=== PATIENT | female | born 1960 | race Caucasian/White ===

== ENCOUNTER 2016-10-04 07:23 | Day surgery (SDC) | payer OTHER ==
[2016-10-01 20:40] LABS: BASOPHILS 0.7 %; BASOPHILS ABSOLUTE 0.04 10/3/uL (0.0-0.16); EOSINOPHILS 3.4 %; EOSINOPHILS ABSOLUTE 0.19 10/3/uL (0.0-0.53); HEMATOCRIT 43.7 % (36.0-48.0); HEMOGLOBIN 14.6 g/dL (12.0-16.0); IMMATURE GRANULOCYTES 0.4 %; IMMATURE GRANULOCYTES ABSOLUTE 0.02 10/3/uL (0.0-0.11); LYMPHOCYTES 38.6 %; LYMPHOCYTES ABSOLUTE 2.14 10/3/uL (0.67-4.30); MEAN CORPUS HGB CONC 33.4 g/dL (32.0-36.0); MEAN CORPUSCULAR HEMOGLOB 29.8 pg (26.0-34.0); MEAN CORPUSCULAR VOLUME 89.2 fL (80-100); MEAN PLATELET VOLUME 11.6 fL (9.2-13.0); MONOCYTES 9.4 %; MONOCYTES ABSOLUTE 0.52 10/3/uL (0.21-1.20); NEUTROPHILS 47.5 %; NEUTROPHILS ABSOLUTE 2.64 10/3/uL (2.02-8.40); RBC DISTRIBUTION WIDTH 12.9 % (12.0-16.0); WHITE BLOOD CELLS 5.6 10/3/uL (4.5-10.5)
[2016-10-01 20:41] LABS: MANUAL DIFF NO %; PLATELET COUNT 268 10/3/uL (150-400)
[2016-10-01 21:00] LABS: A/G RATIO 1.3 (0.7-1.9); ALBUMIN 4.3 G/DL (3.5-5.0); BUN (BLOOD UREA NITROGEN) 11 MG/DL (6-23); CALCIUM, SERUM 9.7 MG/DL (8.5-10.4); CHLORIDE, SERUM 107 MMOL/L (96-112); CO2 (CARBON DIOXIDE) 24 MMOL/L (24-34); CREATININE 0.73 MG/DL (0.55-1.02); GFR AFRICAN AMERICAN 107 ML/MIN (>=60); GFR NON AFRICAN AMERICAN 93 ML/MIN (>=60); GLOBULIN 3.2 G/DL (2.5-4.1); GLUCOSE, SERUM 98 MG/DL (60-99); SGPT(ALT) 39 U/L (5-65); SODIUM, SERUM 142 MMOL/L (135-148); TOTAL PROTEIN 7.5 G/DL (6.0-8.5)
[2016-10-01 21:01] LABS: ALKALINE PHOSPHATASE 96 U/L (45-117); POTASSIUM, SERUM 4.3 MMOL/L (3.5-5.3); TOTAL BILIRUBIN 0.5 MG/DL (0-1.2)
[2016-10-01 21:02] LABS: SGOT(AST) 27 U/L (5-40)
--- NOTE | ~2016-10-04 | PREOPHP ---
PreOp History and Physical [id number] [place]. [address] NAME: YIN DANIEL : 62 STATUS : PRE [facility] PAT#: [id number] AGE: 56 ADM/REG DATE : MR#: [id number] REPORT SERV DATE: 10/03/16 DICTATED BY: WENDY WEISS III DATE: 09/25/16 REPORT STATUS : Draft TRANSCRIBED BY: MODDelma DATE: 09/25/16 HISTORY OF PRESENT ILLNESS: This 56-year-old female comes to the operating room for subclavian Port-A-Cath placement to allow for chronic IV access for chemotherapy. The patient has recently been diagnosed with stage III malignant melanoma. She comes now for Port-A-Cath placement to allow for chronic IV access for chemotherapy. PAST MEDICAL HISTORY: Malignant melanoma. MEDICATIONS: Diclofenac, progesterone, Treximet, and triamcinolone. ALLERGIES: NONE. FAMILY HISTORY: Positive for heart disease and lung disease. PHYSICAL EXAMINATION: GENERAL: This is a female, in no acute distress. She is alert and oriented x3. HEENT: Unremarkable. Cranial nerves II through XII are normal. LUNGS: Clear. CARDIAC: Normal. ABDOMEN: Soft and nontender. ASSESSMENT: A 56-year-old female with stage III malignant melanoma, status post wide excision of melanoma from back, with bilateral axillary metastasis, with need for Port-A- Cath placement. PLAN: The patient comes to the operating room now for subclavian Port-A-Cath placement. This procedure, the risks, benefits, and alternatives, including not limited to the risk for bleeding, infection, pneumothorax, air embolus, pericardial tamponade, failure of the port to function, infection of the port, or subclavian vein thrombosis requiring removal of the port, dislodgement of the Port-A-Cath tubing requiring extraction, and unforeseen complications including deep venous thrombosis, pulmonary embolus, myocardial infarction, stroke, pneumonia, and , have been explained to the patient prior to surgery. Her questions were answered. She understands the risks and agrees to surgery as planned. RAYMOND/TABITHA Wendy Weiss III, M.D. / [id number]
--- NOTE | ~2016-10-04 | OP ---
Record Of Operation [facility] [address] [place]. [address] NAME: YIN DANIEL : 62 STATUS : [facility]#: [id number] AGE: 56 ADM/REG DATE : 10/04/16 MR#: [id number] REPORT SERV DATE: 10/04/16 DICTATED BY: WENDY MOJICA III DATE: 10/04/16 REPORT STATUS : Draft TRANSCRIBED BY: MODDelma DATE: 10/04/16 DATE OF PROCEDURE: 10/04/2016 PREOPERATIVE DIAGNOSIS: Malignant melanoma with need for subclavian vein Port-A-Cath placement to allow for chronic IV access for chemotherapy. POSTOPERATIVE DIAGNOSIS: Malignant melanoma with need for subclavian vein Port-A-Cath placement to allow for chronic IV access for chemotherapy. PROCEDURE: Right subclavian vein Port-A-Cath placement with fluoroscopy. SURGEON: Wendy Mojica M.D. ANESTHESIA: General with intubation. COMPLICATIONS: None. ESTIMATED BLOOD LOSS: Less than 5 mL. SPECIMENS: None. DRAINS: None. LAP AND SPONGE COUNT: Correct x3. BRIEF HISTORY: This 56-year-old female was recently diagnosed with malignant melanoma. She is in need of Port-A-Cath placement to allow for chronic IV access for chemotherapy. This procedure, the risks, benefits, and alternatives, including but not limited to the risk for bleeding, infection, pneumothorax, air embolus, pericardial tamponade, failure of the port to function, infection of the port, or subclavian vein thrombosis, requiring removal of the port, dislodgement of the Port-A-Cath tubing requiring extraction, and unforeseen complications including deep venous thrombosis, pulmonary embolus, myocardial infarction, stroke, pneumonia, and , were explained to the patient prior to surgery. Her questions were answered. She understood the risks and agreed to surgery as planned. DESCRIPTION OF PROCEDURE: After being appropriately identified, and after discussing risks of surgery with the patient again in the preoperative area, the patient was taken to the operating room and placed in the supine position on the operating room table. General anesthesia was administered, and the patient was intubated without difficulty. The upper chest and neck areas were prepped and draped sterilely in the usual fashion. After an appropriate "time-out" per JCAHO standards, a needle was used to identify the right subclavian vein. The vein was identified on the first pass of the needle. A guidewire was passed through the needle and the needle was removed. Fluoroscopy was performed, confirming the tip of the guidewire to be in the correct position of superior vena cava. A small transverse incision was then made at the exit site of the guidewire from the skin. A subcutaneous infraclavicular pocket was made of the appropriate size for the Port-A-Cath Record Of [address] [address] NAME: YIN DANIEL : 62 STATUS : [facility] PAT#: [id number] AGE: 56 ADM/REG DATE : 10/04/16 MR#: [id number] REPORT SERV DATE: 10/04/16 DICTATED BY: WENDY MOJICA III DATE: 10/04/16 REPORT STATUS : Draft TRANSCRIBED BY: TABITHA DATE: 10/04/16 housing. The Port-A-Cath housing was connected to the tubing. The Port-A-Cath housing and tubing were flushed with a heparin solution, and the tubing was cut to the appropriate length. The introducer was then placed over the guidewire. The guidewire and inner dilator were removed. The Port-A-Cath tubing was then placed through the sheath as the sheath was peeled away. This went very smoothly. The Port-A-Cath housing was positioned in the infraclavicular pocket. It was secured in place with 2-0 silk sutures. It was accessed with a Luna needle and noted to aspirate blood easily. It was then flushed with heparin solution noted to flush easily. Repeat fluoroscopy was performed, confirming the tip of the Port-A-Cath tubing to be in the correct position in superior vena cava. Hemostasis was assured. The subcutaneous tissue was closed with a running 3-0 Vicryl suture. The skin was closed with running subcuticular 4-0 Monocryl stitch. The incision was injected with 0.5% Marcaine. Dressings were applied. Anesthesia was reversed, and the patient was taken to recovery room in stable condition. The patient tolerated the procedure well. The patient will be discharged later when stable and comfortable after the chest x-ray has been cleared per Radiology. The patient's family was advised that the wound should be kept clean and dry for 48 hours, that there should be no driving for 2-3 days after surgery or while using narcotics, and the patient shall resume usual medications. The patient was asked to return in two weeks for followup or sooner for any fever, chills, wound drainage, or other problems prior to that time. RHJ/TABITHA Wendy Mojica III, M.D. / [id number] CC: Cherelle Cantu III, M.D.
--- NOTE | ~2016-10-04 | OP ---
Record Of Operation [facility] [address] [place] [address] NAME: YIN REGALADO : 62 STATUS : [facility]#: [id number] AGE: 56 ADM/REG DATE : 10/04/16 MR#: [id number] REPORT SERV DATE: 10/04/16 DICTATED BY: WENDY MOJICA III DATE: 10/04/16 REPORT STATUS : Draft TRANSCRIBED BY: MODDelma DATE: 10/04/16 DATE OF PROCEDURE: 10/04/2016 ADDENDUM: In the recovery room, Ms. Regalado had a routine chest x-ray which shows a very small right apical pneumothorax. I have reviewed this with Radiology and this appears to be too small to allow for percutaneous chest tube placement. We will plan to repeat the chest x-ray before the patient leaves today from phase 2 recovery. As long as this remains stable, no further intervention will be needed. However, if it starts increasing in size, then the patient will have a percutaneous Pleur-evac or chest tube placed. I have discussed this with the patient's . If the chest x-ray again remain stable, I have explained that there is still a small possibility of delayed pneumothorax which could be manifested by acute shortness of breath or chest pain. Should this occur, the patient's was advised that she should come immediately to the emergency room. Otherwise, we will see her back for followup as previously described. RAYMOND/TABITHA Wendy Mojica III, M.D. / [id number] CC: Cherelle Cantu III, M.D.
[~2016-10-04 07:23] MED LIST: D 5000 PO; ESTRA; NEXIUM20 M1 PO; PERCOCET 10/3251 TAB PO; PROGESTERONE PO; TREXIMET PO; VITAMIN B-121000 MC1 SL; VOLT50 PO; [UNRECOGNIZED DRUG - OTHER]
== END 2016-10-04 13:41 | disposition home or self-care (01) ==
LOC: SDC 07:23
PROVIDERS: Surgery
PROC: 05H533Z Insertion of Infusion Device into Right Subclavian Vein, Percutaneous Approach (ICD-10-PCS; 2016-10-04)
PROC: B516YZA Fluoroscopy of Right Subclavian Vein using Other Contrast, Guidance (ICD-10-PCS; 2016-10-04)
PROC: 0JH60XZ Insertion of Tunneled Vascular Access Device into Chest Subcutaneous Tissue and Fascia, Open Approach (ICD-10-PCS; principal; 2016-10-04 09:00)
DX: C43.59 Malignant melanoma of other part of trunk (principal); F41.9 Anxiety disorder, unspecified; M19.90 Unspecified osteoarthritis, unspecified site; Z85.828 Personal history of other malignant neoplasm of skin; Z82.49 Family history of ischemic heart disease and other diseases of the circulatory system; Z90.89 Acquired absence of other organs
CPT/HCPCS: 36415; 71010; 77001; 80053; 85025; 93005; C1751; J0690; J2250; J2270; J2405; J3010; Q9967

== ENCOUNTER 2016-10-20 13:35 | Observation (INO) | payer OTHER ==
[2016-10-19 12:07] LABS: BASOPHILS 0.8 %; BASOPHILS ABSOLUTE 0.06 10/3/uL (0.0-0.16); EOSINOPHILS 4.4 %; EOSINOPHILS ABSOLUTE 0.34 10/3/uL (0.0-0.53); HEMATOCRIT 42.7 % (36.0-48.0); HEMOGLOBIN 14.5 g/dL (12.0-16.0); IMMATURE GRANULOCYTES 0.3 %; IMMATURE GRANULOCYTES ABSOLUTE 0.02 10/3/uL (0.0-0.11); LYMPHOCYTES 33.5 %; LYMPHOCYTES ABSOLUTE 2.61 10/3/uL (0.67-4.30); MEAN CORPUSCULAR HEMOGLOB 29.5 pg (26.0-34.0); MEAN PLATELET VOLUME 9.4 fL (9.2-13.0); MONOCYTES 9.6 %; MONOCYTES ABSOLUTE 0.75 10/3/uL (0.21-1.20); NEUTROPHILS 51.4 %; PLATELET COUNT 283 10/3/uL (150-400); RBC DISTRIBUTION WIDTH 12.8 % (12.0-16.0); RED CELL COUNT 4.91 10/6/uL (4.0-5.6); WHITE BLOOD CELLS 7.8 10/3/uL (4.5-10.5)
[2016-10-19 12:08] LABS: MANUAL DIFF NO %
[2016-10-19 12:25] LABS: ALBUMIN 4.1 G/DL (3.5-5.0); BUN (BLOOD UREA NITROGEN) 9 MG/DL (6-23); CALCIUM, SERUM 9.3 MG/DL (8.5-10.4); CHLORIDE, SERUM 109 MMOL/L (96-112); CO2 (CARBON DIOXIDE) 26 MMOL/L (24-34); CREATININE 0.77 MG/DL (0.55-1.02); GFR AFRICAN AMERICAN 101 ML/MIN (>=60); GFR NON AFRICAN AMERICAN 87 ML/MIN (>=60); GLUCOSE, SERUM 81 MG/DL (60-99); SGOT(AST) 33 U/L (5-40); SGPT(ALT) 54 U/L (5-65); SODIUM, SERUM 144 MMOL/L (135-148); TOTAL BILIRUBIN 0.3 MG/DL (0-1.2)
[2016-10-19 12:26] LABS: A/G RATIO 1.1 (0.7-1.9); ALKALINE PHOSPHATASE 118 U/L (45-117); GLOBULIN 3.9 G/DL (2.5-4.1)
--- NOTE | ~2016-10-20 | OP ---
Record Of Operation [facility] [address] [place]. [address] NAME: YIN DANIEL : 62 STATUS : DIS IN PAT#: [id number] AGE: 56 ADM/REG DATE : 10/20/16 MR#: [id number] REPORT SERV DATE: 10/21/16 DICTATED BY: WENDY MOJICA III DATE: 10/21/16 REPORT STATUS : Draft TRANSCRIBED BY: MODDelma DATE: 10/21/16 DATE OF PROCEDURE: 10/21/2016 PREOPERATIVE DIAGNOSIS: Metastatic melanoma to the left axilla. POSTOPERATIVE DIAGNOSIS: Metastatic melanoma to the left axilla. PROCEDURE: Left axillary lymphadenectomy including #1, 2, and 3 lymph nodes. SURGEON: Wendy Mojica M.D. ANESTHESIA: General with intubation. COMPLICATIONS: None. ESTIMATED BLOOD LOSS: 10 mL. SPECIMENS: Lymph node dissection for level 1, 2, and 3 lymph nodes. DRAINS: Castillo-Zhu in axilla. LAP AND SPONGE COUNT: Correct x3. BRIEF HISTORY: This 56-year-old female has a history of malignant melanoma which originated on her back. She is status post wide local resection of a primary malignancy and bilateral sentinel lymph node biopsies involving the axilla which were positive. She had undergone a left axillary lymph node dissection prior to this. However postoperative imaging showed evidence for involvement of the level 3 lymph nodes with groin adenopathy. This was felt to be a persistent disease or recurrent disease. It was felt that further axillary lymph node dissection to include the deeper more proximal level 3 lymph nodes was indicated as the patient had no evidence for disease elsewhere. The patient was to undergo chemotherapy postoperatively and this was felt to be indicated as a potential lifesaving procedure and to make the patient without evidence for disease. The fact that this will be a major procedure with increased risk for complications including neurologic complications and lymphedema of the arm, was explained. The procedure risks, benefits, and alternatives, including not limited to, the risk for bleeding, infection, pain, swelling, scarring, or deformity to the area, seroma formation, hematoma formation, nerve injury with chronic paresthesia or pain in the arm, shoulder, or axilla, nerve injury with muscle weakness or paralysis in muscles of upper back or shoulder, chronic lymphedema of the arm, and unforeseen complications including deep venous thrombosis, pulmonary embolus, myocardial infarction, stroke, pneumonia, and , were fully explained to the patient and her family prior to surgery. Her questions were answered. She understood the risks and agreed to the surgery as planned. DESCRIPTION OF PROCEDURE: After being properly identified and after discussing the risks of surgery with the patient and family again in the preoperative area, she was taken to the operating room and placed in the supine position on the operating room table. General Record Of Operation [id number] [facility] [place]. [address] NAME: IYN DANIEL : 62 STATUS : DIS IN PAT#: [id number] AGE: 56 ADM/REG DATE : 10/20/16 MR#: [id number] REPORT SERV DATE: 10/21/16 DICTATED BY: WENDY MOJICA III DATE: 10/21/16 REPORT STATUS : Draft TRANSCRIBED BY: TABITHA DATE: 10/21/16 anesthesia was administered and she was intubated without difficulty. Her left arm was prepped and draped sterilely in the usual fashion and placed out on arm board at 90 degrees. The chest and axilla and arm were prepped and draped sterilely. After an appropriate "time- out" per JCAHO standards, a transverse incision was made along the inferior aspect of the axilla, inferior to the previous incision. The incision was continued through the subcutaneous tissue. Hemostasis was controlled with electrocautery. Superior inferior medial and lateral flaps were raised. The flaps were raised to expose the anterior border of the latissimus muscle posteriorly, and the posterior border of the major pectoral muscle anteriorly. Using sharp dissection, we dissected along the inferior and superior borders of the latissimus muscle so as to define the inferior aspect of the axilla. There was extensive scarring in the area from the previous surgery and dissection was done very carefully. There was, in particular, extensive scarring along the axillary vein. Using sharp dissection, we followed the major pectoral muscle up to its insertion and the coracoid process. Using sharp dissection, the fascia over the major and minor pectoral muscles were divided. The minor and major pectoral muscles were retracted medially. We continued our dissection medially along the axillary vein. There are several palpable but not enlarged level 3 lymph nodes. We began our dissection here and dissected inferiorly and laterally along the axillary vein. Great care was taken not to involve or to encroach upon the long thoracic nerve and later the thoracodorsal nerves. Using sharp dissection, the lymph node adipose tissue was dissected again laterally and inferiorly. We dissected along the axillary vein. The thoracodorsal nerve was identified and carefully protected. We then dissected further inferiorly. The long thoracic nerve was identified and protected. There was a large hard mass in the mid axilla which was included in the specimen. The entire remaining axillary content was again consistent with level 3, 2, and 1 lymph nodes and was resected en bloc. There was a separate small lymph node identified as level 3, high up in the level 3 region and this was sent separately. The area was irrigated copiously with saline. Hemostasis was assured. There is no significant adipose or lymphoid tissue visible anywhere after this dissection. The area was irrigated copiously with saline. Hemostasis was assured. A Castillo-Zhu drain was brought through a separate stab wound and placed in the axilla. The subcutaneous tissue was closed with interrupted 3-0 Vicryl sutures. The skin was closed with running subcuticular 4-0 Monocryl stitch. The incision was injected with 0.5% Marcaine. Dressings were applied. Anesthesia was reversed. The patient was taken to the recovery room in stable condition. She tolerated the procedure well. Her family was informed of the results of surgery. She will remain in the hospital for postoperative care. RAYMOND/TABITHA Wendy Mojica III, M.D. / [id number] CC: Cherelle Cantu III, M.D.
--- NOTE | ~2016-10-20 | PREOPHP ---
PreOp History and Physical [address] [place]. [address] NAME: YIN DANIEL : 62 STATUS : PRE [facility] PAT#: [id number] AGE: 56 ADM/REG DATE : MR#: [id number] REPORT SERV DATE: 10/19/16 DICTATED BY: WENDY WEISS III DATE: 10/16/16 REPORT STATUS : Draft TRANSCRIBED BY: MODDelma DATE: 10/16/16 HISTORY OF PRESENT ILLNESS: This 56-year-old female, with a history of stage IIIC malignant melanoma, comes to the operating room for a left axillary lymphadenectomy. The patient has a history of malignant melanoma. She was recently found to have a dark pigmented lesion over her mid back. She underwent wide resection of this lesion, which was found to be a malignant melanoma. She has had evidence for metastatic disease to both axilla. She has had bilateral axillary dissection. However on recent imaging, a PET scan showed at least one suspicious lymph node in the left axilla. This lymph node was palpable clinically. This was found to be residual or persistent lymph node, which is FDG avid or positive on PET scan, indicating persistent melanoma. The patient comes now for completion left axillary lymph node dissection or lymphadenectomy. PAST MEDICAL HISTORY: History of stage IIIC malignant melanoma as above. This is a T2a N3 M0 malignancy, Akash's level 4, 1.5 mm in thickness. The patient is status post wide resection of the malignancy with left sentinel lymph node biopsy on 07/19/2016, with a satellite nodule in the deep dermis with free margins. She had 2/3 positive metastatic left axillary lymph nodes 2.2 cm in size with extracapsular extension in one node. She is status post bilateral axillary lymph node dissection on 08/18/2016 with 3/20 positive right axillary lymph nodes. MEDICATIONS: Diclofenac, progesterone, Treximet, triamcinolone, vitamin D3 and Estratest. ALLERGIES: NONE. FAMILY HISTORY: Positive for heart disease and lung cancer. SOCIAL HISTORY: The patient has a previous history of alcohol use. She has no history of tobacco use. REVIEW OF SYSTEMS: The patient's 14-point review of systems is otherwise unremarkable. PHYSICAL EXAMINATION: GENERAL: This is a female in no acute distress. She is alert and oriented x3. VITAL SIGNS: Blood pressure 190/99, pulse 83, temperature 97.4. HEENT: Unremarkable. NECK: Unremarkable. There is no adenopathy. NEURO: Cranial nerves 2 through 12 were normal. LUNGS: Clear. CARDIAC: Normal. The right axilla is normal with no adenopathy. In the left axilla, there was at least one palpable lymph node about 2 cm in size. ABDOMEN: Soft and nontender. LABORATORY: PET scan as above, showing a left axillary lymph node which is FDG avid. ASSESSMENT: A 56-year-old female with stage IIIC malignant melanoma, with persistent or recurrent adenopathy in the left axilla. PreOp History and Physical [address] [address] NAME: YIN DANIEL : 62 STATUS : PRE [facility]#: [id number] AGE: 56 ADM/REG DATE : MR#: [id number] REPORT SERV DATE: 10/19/16 DICTATED BY: WENDY WEISS III DATE: 10/16/16 REPORT STATUS : Draft TRANSCRIBED BY: TABITHA DATE: 10/16/16 PLAN: The patient comes to the operating room now for completion left axillary lymph node dissection or lymphadenectomy. This procedure, the risks, benefits and alternatives including, but not limited to the risk for bleeding; infection; pain; swelling; scarring or deformity to the area; seroma formation; hematoma formation; nerve injury with chronic paresthesia or pain in the arm, shoulder or axilla; chronic lymphedema of the arm; nerve injuries; muscle weakness or paralysis in muscles of her back or shoulder; and unforeseen complications including deep venous thrombosis, pulmonary embolus, myocardial infarction, stroke, pneumonia and , have been explained to the patient prior to surgery. Her questions were answered. She clearly understands the risks and agrees to the surgery as planned. RAYMOND/TABITHA Wendy Weiss III, M.D. / [id number]
[2016-10-21 06:22] LABS: BASOPHILS 0.2 %; BASOPHILS ABSOLUTE 0.02 10/3/uL (0.0-0.16); EOSINOPHILS 0.8 %; EOSINOPHILS ABSOLUTE 0.09 10/3/uL (0.0-0.53); HEMOGLOBIN 12.5 g/dL (12.0-16.0); IMMATURE GRANULOCYTES 0.3 %; IMMATURE GRANULOCYTES ABSOLUTE 0.03 10/3/uL (0.0-0.11); LYMPHOCYTES ABSOLUTE 2.06 10/3/uL (0.67-4.30); MEAN CORPUS HGB CONC 34.2 g/dL (32.0-36.0); MEAN CORPUSCULAR HEMOGLOB 29.6 pg (26.0-34.0); MEAN CORPUSCULAR VOLUME 86.5 fL (80-100); MEAN PLATELET VOLUME 10.1 fL (9.2-13.0); MONOCYTES 10.2 %; MONOCYTES ABSOLUTE 1.17 10/3/uL (0.21-1.20); NEUTROPHILS 70.5 %; PLATELET COUNT 279 10/3/uL (150-400); RBC DISTRIBUTION WIDTH 12.7 % (12.0-16.0); RED CELL COUNT 4.23 10/6/uL (4.0-5.6)
[2016-10-21 06:23] LABS: HEMATOCRIT 36.6 % (36.0-48.0); MANUAL DIFF NO %; WHITE BLOOD CELLS 11.5 10/3/uL (4.5-10.5)
[2016-10-21] MEDS ORDERED: PERCOCET 7.5/321 TAB PO (08:23)
== END 2016-10-21 10:26 | disposition home or self-care (01) ==
LOC: SDC 13:35 → 4EA 13:36
PROVIDERS: Surgery
PROC: 07B60ZX Excision of Left Axillary Lymphatic, Open Approach, Diagnostic (ICD-10-PCS; principal; 2016-10-20 09:00)
DX: C77.3 Secondary and unspecified malignant neoplasm of axilla and upper limb lymph nodes (principal); Z79.899 Other long term (current) drug therapy; Z90.89 Acquired absence of other organs; Z98.890 Other specified postprocedural states
CPT/HCPCS: 71020; 80053; 85025; 88305; 88307; 96374; 96375; 96376; A9270-GY; G0378; J0690; J1885; J2250; J2270; J2405; J3010